=== PATIENT | female | born 1980 | race Caucasian/White ===

== ENCOUNTER → 2018-02-26 | Outpatient (CLI) | payer OTHER | LOC: RAD 14:02 | PROVIDERS: ATTEND Physician Assistant Medical | DX: Z02.9 Encounter for administrative examinations, unspecified (principal) ==

== ENCOUNTER 2020-04-23 19:11 | Emergency (ER) | payer OTHER ==
[~2020-04-23] VITALS: Ht 154.9 cm; Wt 74.5 kg
[2020-04-23] MEDS ORDERED: ONDANSETRON 2MG/ML, 2ML ONE (19:52)
[2020-04-23] MEDS ORDERED: SODIUM CHLORIDE 0.9% 1,000ML IVBOLUS ONE (20:00)
[2020-04-23] MEDS ORDERED: ONDANSETRON 2MG/ML, 2ML IVPush ONE (20:00)
[2020-04-23] MEDS ORDERED: DICYCLOMINE 20 MG TABLET PO ONE (20:00)
[2020-04-23 20:03] LABS: BASOPHILS # (AUTO) 0.04 x10^3/uL (0-0.1); BASOPHILS % (AUTO) 0 % (0-1); EOSINOPHILS # (AUTO) 0.87 x10^3/uL (0-0.4); EOSINOPHILS % (AUTO) 10 % (1-7); LYMPHOCYTES # (AUTO) 1.78 x10^3/uL (1-3.4); LYMPHOCYTES % (AUTO) 20 % (22-44); MD NO; MEAN CORPUSCULAR HEMOGLOBIN 29.1 pg (27.0-34.8); MEAN CORPUSCULAR HGB CONC 33.5 g/dL (32.4-35.8); MEAN CORPUSCULAR VOLUME 86.7 fL (80-100); MONOCYTES # (AUTO) 0.61 x10^3/uL (0.2-0.8); MONOCYTES % (AUTO) 7 % (2-9); NEUTROPHILS # (AUTO) 5.74 x10^3/uL (1.8-6.8); NEUTROPHILS % (AUTO) 64 % (42-75); PLATELET COUNT 328 x10^3/uL (130-400); RED BLOOD COUNT 5.18 x10^6/uL (3.82-5.3)
--- NOTE | 2020-04-23 20:06 | NUR ---
PATIENT RESTING COMFORTABLY IN ROOM, GIVEN ICE CHIPS FOR DRY MOUTH. RN ESTABLISHED AN IV AND GAVE MEDICATIONS. PATIENT OXYGEN LEVEL IS IN THE LOW 90S, SHE REPORTS HER ASTHMA HAS BEEN SLIGHTLY WORSE AND NEEDED HER RESCUE HER INHALER MORE THAN NORMAL. MD AWARE, COVID AND XRAY PERFORMED. PATIENT DENIES ANY SOB OR FEVERS AT THIS TIME. PATIENT IS MOVING AIR THROUGHOUT HER LUNGS SOME EXP WHEEZES HEARD. 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
[2020-04-23 20:08] LABS: ALANINE AMINOTRANSFERASE 26 U/L (12-78); ALBUMIN 3.6 g/dL (3.4-5.0); ANION GAP 6 mmol/L (5-15); CALCIUM 9.7 mg/dL (8.5-10.1); CHLORIDE 106 mmol/L (98-107); CREATININE 0.86 mg/dL (0.55-1.02)
[2020-04-23 20:10] LABS: ALKALINE PHOSPHATASE 63 U/L (45-117); BILIRUBIN,TOTAL 0.8 mg/dL (0.2-1.0); TOTAL PROTEIN 7.3 g/dL (6.4-8.2)
[2020-04-23] MEDS ORDERED: DICYCLOMINE 20 MG TABLET ONE (20:32)
[2020-04-23] MEDS ORDERED: methylPREDNISolone SOD SUCC 125 MG/2 ML ONE (21:29)
[2020-04-23] MEDS ORDERED: methylPREDNISolone SOD SUCC 125 MG/2 ML IVPush SCH (21:30)
[2020-04-23 21:51] VITALS: BP 148/96
== END 2020-04-23 21:57 | disposition home or self-care (01) ==
LOC: ED 21:48
DX: J45.31 Mild persistent asthma with (acute) exacerbation (principal); Z20.828 Contact with and (suspected) exposure to other viral communicable diseases; R50.9 Fever, unspecified; R10.84 Generalized abdominal pain; R11.2 Nausea with vomiting, unspecified; R19.7 Diarrhea, unspecified
CPT/HCPCS: 36415; 71045; 80053; 83690; 84145; 84703; 85025; 87635; 96361; 96374; 96375; 99284; J2405; J2930; J7030